=== PATIENT | male | born 1945 | race Caucasian/White ===

== ENCOUNTER 2017-03-16 11:43 | Emergency (ER) | payer OTHER ==
[~2017-03-16] VITALS: Ht 182.9 cm; Wt 103.5 kg
[~2017-03-16 11:43] MED LIST: CO Q-1050 MG PO; COZAAR100 MG PO; NORVASC10 MG PO; OMEGA 3-6-9 11200 MG PO; PREVACID30 MG PO; RESVERATROL100 MG PO; ST. JOSEPH ASPI81 MG PO; VITAMIN D31000 UNIT PO
[2017-03-16 12:24] LABS: ADD MIUA? YES; BILIRUBIN NEGATIVE; BLOOD NEGATIVE; GLUCOSE (STRIP) NEGATIVE; KETONES 5; LEUKOCYTES NEGATIVE; NITRITE NEGATIVE; PROTEIN (STRIP) NEGATIVE; SPECIFIC GRAVITY 1.018 (1.000-1.030); UROBILINOGEN 0.2 MG/DL (0.2-1.0)
[2017-03-16 12:31] LABS: COLOR YELLOW ((YELLOW))
[2017-03-16 12:34] LABS: HEMATOCRIT 43.8 % (38.0-50.0); MCH 30.8 PG (29.0-34.0); MCHC 34.5 G/DL (30.0-36.0); MCV 89.2 FL (86-99); MEAN PLAT.VOLUME 8.9 uM^3 (9.0-12.4); PLATELET COUNT 268 K/uL (156-360); RBC DIS.WIDTH-CV 12.1 % (11.8-14.6); RBC DIS.WIDTH-SD 39.8 % (39-53); RED BLOOD COUNT 4.91 M/uL (4.00-5.50); WHITE BLOOD COUNT 15.1 K/uL (4.1-10.2)
[2017-03-16 12:45] LABS: BACTERIA NONE SEEN /HPF; EPITHELIAL CELLS RARE /HPF; MUCUS TRACE /LPF; UCUL ADDED? NO; URIC ACID CRYSTALS 2+ /HPF; WHITE BLOOD CELLS 0-5 /HPF (0-5)
[2017-03-16 12:51] LABS: CHLORIDE 110 mEq/L (99-109); POTASSIUM 3.9 mEq/L (3.7-5.4); SODIUM 142 mEq/L (136-147)
[2017-03-16 12:52] LABS: GLUCOSE 170 mg/dL (70-99)
[2017-03-16 12:54] LABS: ANION GAP 9 MEQ/L (2-14)
[2017-03-16 12:56] LABS: GFR ESTIMATE (CALCULATED) 58 mL/min/
[2017-03-16 12:57] LABS: UREA NITROGEN (BUN) 23 mg/dL (9-23)
[2017-03-16 13:24] LABS: TOTAL BILIRUBIN 0.5 mg/dL (0.0-1.0)
[2017-03-16 13:25] LABS: ALKALINE PHOSPHATASE 86 IU/L (3-129)
[2017-03-16 13:28] LABS: DIRECT BILIRUBIN 0.2 mg/dL (0.0-0.3)
[2017-03-16 13:29] LABS: LIPASE 12 U/L (1.0-51.0)
[2017-03-16] MEDS ORDERED: FLOMAX0.4 MG PO (15:59)
[2017-03-16] MEDS ORDERED: CIPRO500 MG PO (15:59)
[2017-03-16] MEDS ORDERED: MOTRIN800 MG PO (15:59)
[2017-03-16] MEDS ORDERED: PERCOCET 5/31 TABLET PO (15:59)
[2017-03-16] MEDS ORDERED: STOOL SOFTENER240 MG PO (16:11)
[2017-03-16 16:17] VITALS: BP 140/71
== END 2017-03-16 16:18 | disposition home or self-care (01) ==
LOC: EME 11:43
DX: N13.2 Hydronephrosis with renal and ureteral calculous obstruction (principal); D72.829 Elevated white blood cell count, unspecified; K21.9 Gastro-esophageal reflux disease without esophagitis; I10 Essential (primary) hypertension
CPT/HCPCS: 74177; 80048; 80076; 81003; 83690; 85027; 99281; 99284; J1885; J2270; J2405; J7040